=== PATIENT | female | born 1950 | race African-American/Black ===

== ENCOUNTER 2021-04-09 15:20 | Emergency (ER) | payer MEDICARE, OTHER ==
[~2021-04-09] VITALS: Ht 167.6 cm; Wt 81.8 kg
[2021-04-09] MEDS ORDERED: HYDR-4072 PO (16:59)
[2021-04-09 17:05] VITALS: BP 158/87
== END 2021-04-09 17:14 | disposition home or self-care (01) ==
LOC: EDUNIT# 15:20 → EMS 15:20
DX: G89.18 Other acute postprocedural pain (principal); R10.9 Unspecified abdominal pain; K21.9 Gastro-esophageal reflux disease without esophagitis; E78.00 Pure hypercholesterolemia, unspecified; I10 Essential (primary) hypertension
CPT/HCPCS: 99281; 99283

== ENCOUNTER 2022-03-04 20:21 | Emergency (ER) | payer MEDICARE, OTHER ==
[~2022-03-04] VITALS: Ht 170.2 cm; Wt 104.5 kg
[~2022-03-04 20:21] MED LIST: HYDR-4072 PO
[2022-03-04] MEDS ORDERED: LORazepam 1 MG TABLET PO ONE (20:30)
[2022-03-04] MEDS ORDERED: HYDROCODONE/ACETAMINOPHEN 5-325 MG TABLET PO ONE (20:30)
[2022-03-04] MEDS ORDERED: IBUP-1554 PO (20:55)
[2022-03-04] MEDS ORDERED: BACL10TA PO (20:55)
[2022-03-04] MEDS ORDERED: LORA-999 PO (20:55)
[2022-03-04] MEDS ORDERED: HYDR-4723 PO (20:55)
[2022-03-04 21:26] VITALS: BP 159/92
== END 2022-03-04 21:28 | disposition home or self-care (01) ==
LOC: EMS 20:36
DX: M54.50 Low back pain, unspecified (principal); F41.9 Anxiety disorder, unspecified; I10 Essential (primary) hypertension; K21.9 Gastro-esophageal reflux disease without esophagitis; E78.00 Pure hypercholesterolemia, unspecified; M19.90 Unspecified osteoarthritis, unspecified site
CPT/HCPCS: 99283